=== PATIENT | female | born 1980 | race Caucasian/White ===

== ENCOUNTER 2021-07-14 08:07 | Emergency (ER) | payer SELFPAY ==
[2021-07-14 09:03] LABS: HEMOGLOBIN 14.3 gm/dl (12.3-15.3); RED BLOOD COUNT 4.99 M/UL (4.00-5.10); WHITE BLOOD COUNT 6.3 K/UL (4.5-11.0)
[2021-07-14 10:03] LABS: BUN/CREATININE RATIO 21 (0-10)
[2021-07-14] MEDS ORDERED: AUGMENTIN 875-1 EACH PO (11:07)
== END 2021-07-14 11:16 | disposition home or self-care (01) ==
LOC: ER1 08:07
PROVIDERS: Emergency Medicine
DX: J36 Peritonsillar abscess (principal); F17.200 Nicotine dependence, unspecified, uncomplicated
CPT/HCPCS: 70491; 80053; 85025; 86403; 87040; 99283; Q9967